=== PATIENT | male | born 1995 | race Caucasian/White ===

== ENCOUNTER 2019-08-22 23:09 | Inpatient (IN) | payer OTHER ==
[~2019-08-22] VITALS: Ht 157.5 cm; Wt 68.1 kg
[2019-08-22 23:09] VITALS: BP 94/73
[2019-08-22 23:27] LABS: URINE BILIRUBIN NEGATIVE (Negative); URINE BLOOD NEGATIVE (Negative); URINE CLARITY CLEAR; URINE COLOR YELLOW; URINE GLUCOSE-RANDOM* NEGATIVE (Negative); URINE KETONES NEGATIVE (Negative); URINE LEUKOCYTES-REFLEX NEGATIVE (Negative); URINE NITRITE-REFLEX NEGATIVE (Negative); URINE PROTEIN (DIPSTICK) NEGATIVE (Negative); URINE UROBILINOGEN 0.2 E.U./dl (0.2-1.0)
[2019-08-22 23:27] LABS: ABSOLUTE NEUTROPHILS 6.8 thou/uL (1.4-8.2); BASOPHILS 0.9 % (0.0-2.0); EOSINOPHILS 1.8 % (0.0-3.0); HEMATOCRIT 40.9 % (42.0-52.0); LYMPHOCYTES 24.4 % (24.0-44.0); MCH 30.6 pg (26.0-34.0); MCHC 34.2 g/dL (28.0-37.0); MCV 89.5 fL (80.0-100.0); MONOCYTES 6.3 % (1.0-8.0); PLATELET COUNT 198 thou/uL (150-400); POLYS 66.6 % (36.0-66.0); RBC 4.57 mil/uL (4.50-6.00); RDW 13.3 % (10.5-14.5); WBC 10.2 thou/uL (4.0-11.0)
[2019-08-22 23:36] LABS: ANION GAP 8 mmol/L (7-16); BUN 11 mg/dL (7-18); CALCIUM 8.9 mg/dL (8.5-10.1); CHLORIDE 102 mmol/L (98-107); CO2 28 mmol/L (21-32); CREATININE 1.3 mg/dL (0.7-1.3); GLUCOSE 125 mg/dL (74-106); POTASSIUM 3.3 mmol/L (3.5-5.1); SODIUM 138 mmol/L (136-145)
[2019-08-22 23:36] LABS: AMP/METHAMP Negative (Negative); BARBITURATES Negative (Negative); BENZODIAZEPINES Negative (Negative); COCAINE Negative (Negative); METHADONE Negative (Negative); OPIATES Negative (Negative); PCP Negative (Negative)
[2019-08-22 23:45] LABS: MAGNESIUM 2.5 mg/dL (1.8-2.4); TROPONIN-I <0.06 ng/mL (<0.06)
[2019-08-23] MEDS ORDERED: WELLBUTRIN SR200 MG PO (02:01)
[2019-08-23] MEDS ORDERED: ABILIFY10 MG PO (02:01)
[2019-08-23] MEDS ORDERED: LITHIUM CARBON300 M3 PO ×2 (02:02→02:05)
[2019-08-23] MEDS ORDERED: LORATIDINE 10 M10 M1 PO (02:02)
[2019-08-23] MEDS ORDERED: FAMOTIDINE 20 M20 MG PO (02:02)
[2019-08-23] MEDS ORDERED: GABAPENTIN100 MG PO (02:03)
[2019-08-23] MEDS ORDERED: CLONAZEPAM 1 MG1 M1 PO (02:03)
[2019-08-23] MEDS ORDERED: TRAMADOL 50 MG50 MG PO (02:03)
[2019-08-23] MEDS ORDERED: BUPROPION HCL150 MG PO (02:04)
[2019-08-23] MEDS ORDERED: MELATONIN3 M1 PO (02:05)
[2019-08-23] MEDS ORDERED: ARISTADA882 MG/3.2 IM (02:06)
[2019-08-23] MEDS ORDERED: MILK OF MA400 MG/5 M PO (02:06)
--- NOTE | 2019-08-23 03:15 | NUR ---
NURSE FROM [facility] CALLED TO CHECK ON PATIENT. SHE TOLD ME MARY KATE AND TWO OTHER RESIDENTS FOUND OR SHARED THEIR OWN SUPPLY OF ZYPREXA. THEY SNORTED IT TO GET HIGH, AND EVERYONE WENT TO SLEEP/PASSED OUT. WHEN THEY WOKE UP, MARY KATE WAS STILL ASLEEP. THEY ALERTED NURSE AND SHE CAME TO ASSESS PATIENT. HE WAS NOT RESPONSIVE, EMS WAS CALLED. I NOTIFIED DR KYLE OF THIS NEW INFORMATION.
[2019-08-23 04:18] LABS: ALBUMIN 4.2 g/dL (3.4-5.0); DIRECT BILIRUBIN < 0.1 mg/dL (<0.1-0.2); SGOT 17 U/L (15-37); SGPT 16 U/L (30-65); TOTAL BILIRUBIN 0.3 mg/dL (<0.1-1.0); TOTAL PROTEIN 7.2 g/dL (6.4-8.2)
[2019-08-23 04:44] LABS: SALICYLATE 4.6 mg/dL (2.8-20.0)
[2019-08-23 05:56] VITALS: BP 100/57
--- NOTE | 2019-08-23 06:02 | NUR ---
3W MADALYN REFUSED TO TAKE THE PT AT THIS TIME
--- NOTE | 2019-08-23 06:12 | NUR ---
COMMERCIAL RELATIONSHIP MANAGER CALLED AND TOLD CHARGE NURSE TO GIVE THE UNIT 30 MINUTES FROM NOW BEFORE GIVING REPORT
[2019-08-23 07:47] VITALS: BP 147/81
[2019-08-23 11:57] VITALS: BP 108/55
--- NOTE | 2019-08-23 17:50 | NUR ---
VSS-AFEBRILE. CONGESTED COUGH, NO VIEWED SPUTUM. LUNG BASES COURSE IN BILATERAL LOWER LOBES. ORIENTED TO SELF EARLY IN SHIFT, WAS ALSO RESTLESS, AND AT POINTS ANGRY AND AGGRESSIVE. IMPULSIVE AND CONTINUALLY ATTEMPTS TO GET OUT OF BED. EDUCATED ON HI CURRENT STATE OF HEALTH AND WEAKNESS, DECLINED TO VERBALIZED AND
--- NOTE | 2019-08-23 17:56 | NUR ---
VSS-AFEBRILE. ORIENTED TO SELF ONLY, RESTLESS, AGITATED, AND AT TIMES VERY AGGRESSIVE WITH STAFF. IMPULSIVE DESPITE EDUCATING ON CURRENT STATE OF HEALTH AND WEAKNESS. PATIENT DECLINED TO VERBALIZE ANY UNDERSTANDING TO EDUCATION MATERIAL. WHEN SPEAKING, WORDS ARE JUMBLED AND CANNOT BE UNDERSTOOD. LATER IN THE SHIFT, ATIVAN WAS ORDERED AND ADMINISTERED. TREMORS CEASED, AND PATIENT BECAME MORE COMPLIANT AND RESPECTFUL. WAS ABLE TO EAT HIS DINNER, AND THERE HAVE BEEN NO FURTHER EPISODES OF INCONTINENCE. COVID 19 TEST=NEGATIVE.
--- NOTE | 2019-08-23 18:50 | NUR ---
TRANSFERRED TO CCU PER ORDERS, REPORT CALLED AND GIVEN TO UNIT INSIDE B2B SALES.
[2019-08-23 19:14] VITALS: BP 123/63
--- NOTE | 2019-08-23 19:24 | NUR ---
PT ARRIVED ON UNIT AT 1900 FROM 3W. SETTLED PT IN BED, TELE IN PLACE. GAVE REPORT TO ONCOMING NIGHT NURSE.
[2019-08-23 22:51] VITALS: BP 117/56
--- NOTE | 2019-08-24 03:58 | NUR ---
Transferred from 3W around shift change. Pt. able to answer orientation questions except date. He requested for snacks at HS and requesting double portion of meals if he can. He has been calm , cooperative and polite. He slept well most of the night. Tolerating room air well with no respiratory distress. Sinus tach at shift change with HR in the low to mid 100's. HR now is in the 90's. Bed alarm on for safety. Psych consult called to answering service last night. Making progress towards care plan goals.
[2019-08-24 04:13] VITALS: BP 120/57
[2019-08-24 05:29] LABS: CALCIUM 9.3 mg/dL (8.5-10.1); POTASSIUM 4.1 mmol/L (3.5-5.1)
[2019-08-24 07:53] VITALS: BP 124/65
[2019-08-24 11:11] VITALS: BP 103/61
--- NOTE | 2019-08-24 13:03 | EKG ---
[facility] [place] [address] ELECTROCARDIOGRAM REPORT Name: MARY KATE FAITH Room #: 201-P ADM IN M.R.#: [id number] Admission: 08/23/19 Attend Phys: Víctor Haynes MD Discharge: Date of : [birth year] Report #: [id number] THIS REPORT FOR: cc: Karthikeyan Zavala MD, Dennis R MD Couchon[place],Jean-Pierre Curran MD ~ THIS REPORT FOR: //name// 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1995 Requested By: Esvin Howard Order Number: [id number] MD: Jean-Pierre Lim Measurements Intervals [place] Rate: 94 P: 65 CA: 218 QRS: 87 QRSD: 98 T: 28 QT: 384 QTc: 481 Interpretive Statements Sinus rhythm Prolonged CA interval ST elev, probable normal early repol pattern Borderline prolonged QT interval No previous ECG available for comparison Electronically Signed On 08-24-2019 13:02:20 CDT by Jean-Pierre Lim [email or web address] <ELECTRONICALLY SIGNED> By: Jean-Pierre Lim MD 08/24/19 1302 [id number] Jean-Pierre Lim MD /EPI
--- NOTE | 2019-08-24 13:04 | EKG ---
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 : 1995 Requested By: Esvin Howard Order Number: [id number] MD: Jean-Pierre Lim Measurements Intervals [place] Rate: 79 P: 53 ND: 211 QRS: 92 QRSD: 95 T: 27 QT: 381 QTc: 437 Interpretive Statements Sinus rhythm Prolonged ND interval Borderline right axis deviation ST elev, probable normal early repol pattern No previous ECG available for comparison Electronically Signed On 08-24-2019 13:02:28 CDT by Jean-Pierre Lim [email or web address] <ELECTRONICALLY SIGNED> By: Jean-Pierre Lim MD 08/24/19 1302 [id number] Jean-Pierre Lim MD /EPI
[2019-08-24 15:09] VITALS: BP 116/86
[2019-08-24 19:52] VITALS: BP 114/77
--- NOTE | 2019-08-24 20:16 | NUR ---
RECEIVED PT'S CARE AROUND 0710; PT. ON BED; RESTING WITH EYES CLOSED; EQUAL CHEST RISING NOTICED; DURING AM ASSESSMENT NO C/O PAIN; AM MEDICATIONS GIVEN; EDUCATED ABOUT FALL PREVENTIONS; REFUSED BED ALARM ON; REMAINED ABOUT THE PRECAUTIONS; ST. UNDERSTANDING; YET REFUSED BED ALARM; ABLE TO AMBULATE WITHIN THE ROOM; STABLE ON FEET; D/C FLUIDS; GOOD URINE OUTPUT; GOOD APPETITE; ST WITH AMBULATION; PHYSICIAN AWARED; ASSESSMENT CHARGED; FOLLOWING POC; PASSED ON REPORT;
--- NOTE | 2019-08-25 02:09 | NUR ---
PT AMBULATING TO BATHROOM INDEPENDENTLY AND IS TOLERATING WELL. DENIES PAIN. PLAN FOR POSSIBLE DISCHARGE 08/24. TELEMETRY DISCONTINUED. CALL LIGHT WITHIN REACH. FREQUENT OBSERVATION.
[2019-08-25 05:17] VITALS: BP 127/77
[2019-08-25 07:50] VITALS: BP 122/84
[2019-08-25 07:53] VITALS: BP 122/84
--- NOTE | 2019-08-25 10:31 | NUR ---
Sp with Mica at [facility] who confirms patient a resident of their facility. DC logistics planner to fax updates and orders and arrange transport return. Sp with [facility] and alerted of dc today. They are in agreement. Faxed updated information including dc orders to [place] office. Patient with hx of attempting to leave facility and try to use drugs. He has been in rehab multiple times in past. Plan dc today.
--- NOTE | 2019-08-25 13:28 | NUR ---
PT DISCHARGING TODAY TO [facility] FAXED DC ORDERS/SUMMARY TO FACILITY SPOKE WITH BARBIE IN ADM SHE RECEIVED ORDERS. ARRANGED TRANSPORT BY [facility] FOR 1230 TODAY. PA'S OFFICE NOTIFIED OF DISCHARGE AND ORDERS FAXED TO OFFICE. UNIT NOTIFIED AND CHART COPY PER US. RN TO CALL REPORT TO [phone].
== END 2019-08-25 14:16 | DRG 917 ==
LOC: ER 23:09 → EROBS 08-23 06:23 → 2N 08-23 06:23 → 3W 08-23 07:18 → 2N 08-23 18:56
PROVIDERS: Emergency Medicine; Nurse Practitioner Family; ADMIT Hospitalist
DX: T43.501A Poisoning by unspecified antipsychotics and neuroleptics, accidental (unintentional), initial encounter (principal); G92 Toxic encephalopathy; Z20.828 Contact with and (suspected) exposure to other viral communicable diseases; F20.9 Schizophrenia, unspecified; Z79.899 Other long term (current) drug therapy; Z88.2 Allergy status to sulfonamides; Z88.8 Allergy status to other drugs, medicaments and biological substances; Y92.89 Other specified places as the place of occurrence of the external cause
CPT/HCPCS: 10797